=== PATIENT | female | born 1970 | race Caucasian/White ===

== ENCOUNTER → 2018-05-25 12:21 | Outpatient (CLI) | payer OTHER, SELFPAY ==
--- NOTE | 2018-05-25 | DI.MG.S_ITS ---
BILATERAL DIGITAL SCREENING MAMMOGRAM 3D/2D WITH CAD: 05/25/2018 CLINICAL: Routine screening. Comparison is made to exams dated: 05/06/2017 mammogram, 04/10/2016 mammogram, and 08/25/2010 mammogram - [facility]. The tissue of both breasts is extremely dense, which lowers the sensitivity of mammography. Current study was also evaluated with a Computer Aided Detection (CAD) system. No significant masses, calcifications, or other findings are seen in either breast. There has been no significant interval change. IMPRESSION: NEGATIVE There is no mammographic evidence of malignancy. A 1 year screening mammogram is recommended. This exam was interpreted at Station ID: [id number]. NOTE: For mammograms, a report in lay terms will be sent to the patient. Approximately 15% of breast malignancies will not be visualized mammographically. In the management of a palpable breast mass, a negative mammogram must not discourage biopsy of a clinically suspicious lesion. Electronically Signed By: Yuval stevenson/nikolay:05/25/2018 21:51:15 letter sent: Normal Exam ACR BI-RADS Category 1: Negative [id number]
== END ==
PROVIDERS: Visit Provider Family Medicine
DX: Z12.31 Encounter for screening mammogram for malignant neoplasm of breast (principal)
CPT/HCPCS: 77063; 77067

== ENCOUNTER 2022-12-01 04:15 | Emergency (ER) | payer OTHER, SELFPAY ==
[2022-12-01 04:22] VITALS: BP 140/60; PULSE 72; RESP 18; TEMP 36.4; O2SAT 100; BMI 21.6
--- NOTE | 2022-12-01 04:35 | ED_ITS ---
HPI - Extremity Problem General Chief complaint: Extremity Problem,Nontraumatic Stated complaint: left tricep hurts Time Seen by Provider: 12/01/22 04:29 Source: patient Mode of arrival: Ambulatory History of Present Illness HPI Narrative: Patient is a 52-year-old male here for evaluation of discomfort to her left triceps muscle. She states it started hurting just a couple days ago. There was no specific injury. She states that it hurts whenever she strains her arm out or moves her arm away from her body. She has no neck pain. She is been doing ice and Tylenol and ibuprofen at home. She comes in the emergency department at 0430 in the morning because she states that she thought that it would not be busy and that maybe she could ?fast track? an MRI. Related Data Previous Rx's Medication Instructions Recorded albuterol sulfate 90 mcg/actuation 2 puff INH Q4HP PRN #1 ea 05/06/17 aerosol inhaler (Ventolin HFA) bupropion HCl 300 mg 24 hr tablet, 1 tab PO Q DAY #90 tabs 09/28/17 extended release buspirone 15 mg tablet 1 tab PO BID #180 tabs 09/28/17 levonorgestrel-ethinyl estradiol 1 tab PO QDAY ##3 11/08/17 0.1 mg-20 mcg tablet (Lutera (28)) Allergies Allergy/AdvReac Type Severity Reaction Status Date / Time codeine Allergy Unknown AGGRESSIVE Unverified 01/05/18 12:13 buspirone [BUSPIRONE] AdvReac Mild headache Unverified 01/05/18 12:13 Review of Systems Constitutional Constitutional: Reports system reviewed and no additional complaints, except as documented Musculoskeletal Musculoskeletal: Reports system reviewed and no additional complaints, except as documented Integumentary/Breasts Skin/Breast: Reports system reviewed and no additional complaints, except as documented Neurologic Neurologic: Reports system reviewed and no additional complaints, except as documented Patient History Surgical History (Updated 01/25/18 @ 05:51 by TRIPP Allison) Status post delivery Status post cholecystectomy Status post colonoscopy (06/21/13) Social History Smoking Status: Never smoker Smoking Status: Never smoker alcohol intake frequency: a few times a month Substance Use Type: does not use Exam Initial Vital Signs Initial Vital Signs: Vital Signs Temperature 97.6 F 12/01/22 04:22 Pulse Rate 72 12/01/22 04:22 Respiratory Rate 18 12/01/22 04:22 Blood Pressure 140/60 12/01/22 04:22 Pulse Oximetry 100 12/01/22 04:22 Oxygen Delivery Method Room Air 12/01/22 04:22 Const General: cooperative HENMT Head: normal to inspection and normocephalic Back/Spine/Pelvis Cervical Spine: No cervical spasm and No cervical spinal tenderness Skin General: no rashes or lesions noted Neuro General: patient alert, patient awake and moves all extremities Extrem Other: Discomfort in the medial aspect of the left triceps muscle. No elbow pain. Course Vital Signs Vital signs: Vital Signs - 8 hr 12/01/22 04:22 Temperature 97.6 F Pulse Rate 72 Respiratory Rate 18 Blood Pressure 140/60 Pulse Oximetry 100 Oxygen Delivery Method Room Air MDM - Extremity (Nontraumatic) MDM Narrative Medical decision making narrative: Patient has had symptoms for only a couple days. There is no indication for radiologic studies. Low suspicion for ACS as her discomfort is clearly reproducible with palpation and movement. The does not appear that there is a muscle spasm. I have low suspicion for a muscle tear. The skin has no changes and low suspicion for cellulitis. Also have low suspicion for cervical radiculopathy. Informed patient that she needs to follow-up with her primary doctor, physical therapist and continue with heat and ice and massage and anti- inflammatories. We discussed using the sling sparingly has a can cause shoulder issues. No indication for MRI out of the emergency department. Discharge Plan Departure Patient Disposition: Home Clinical Impression: Strain of left triceps Instructions: How To Perform RICE (Rest, Ice, Compress, Elevate) Activity Restrictions/Additional Instructions: I do recommend that you use the sling sparingly for your comfort. You can continue with icing and anti-inflammatories. I would also recommend that you talk with your physical therapist. Contact your primary doctor for a follow-up. Prescriptions: No Action albuterol sulfate [Ventolin HFA] 90 MCG/PUFF HFA aerosol inhaler 2 puff INH Q4HP PRNQty: 1 4RF buspirone 15 MG tablet 1 tab PO BID Qty: 180 1RF bupropion HCl 300 MG tablet extended release 24 hr 1 tab PO Q DAY Qty: 90 1RF levonorgestrel-ethinyl estrad [Lutera (28)] 1 EACH tablet 1 tab PO QDAY Qty: 3 3RF Referrals: Mao Hicks MD [Primary Care Provider] - Stand Alone Forms: Patient Portal/API
[2022-12-01 04:42] VITALS: PULSE 78; RESP 20; O2SAT 100
== END 2022-12-01 04:43 | disposition home or self-care (01) ==
PROVIDERS: Emergency Provider Emergency Medicine; PCP Family Medicine
DX: S46.312A Strain of muscle, fascia and tendon of triceps, left arm, initial encounter (principal)
CPT/HCPCS: 99281

== ENCOUNTER 2023-05-27 07:39 | Emergency (ER) | payer OTHER, SELFPAY ==
[2023-05-27 07:44] VITALS: BP 140/65; PULSE 76; RESP 18; TEMP 36.8; O2SAT 100; BMI 20.9
--- NOTE | 2023-05-27 08:02 | DI.CT.S_ITS ---
PROCEDURE: CT ABDOMEN PELVIS W CON INDICATIONS: abdominal pain TECHNIQUE: After the administration of oral and IV contrast, axial sections were acquired from the lung bases to the pubic symphysis. Coronal and sagittal reformats were performed. For radiation dose reduction, the following was used: automated exposure control, adjustment of mA and/or kV according to patient size. COMPARISON: [facility], CT, CT ABDOMEN PELVIS WITH CONTRAST, 06/29/2018, 15:31 mass lesion . [facility], CT, ABDOMEN/PELVIS WITH CONTRAST, 04/29/2013, 8:34. FINDINGS: Image quality: Excellent. Lung bases: Unremarkable. Heart: No significant findings. ABDOMEN: Liver: Liver is enlarged measuring 18.7 cm with steatosis. Gallbladder: Removed. Biliary ducts: Unremarkable. Pancreas: Unremarkable. Spleen: Unremarkable. Adrenal Glands: Unremarkable. Kidneys and Ureters: Unremarkable. Stomach and Bowel: Stomach, small bowel loops, and colon are nonobstructive. There is thickening of the distal descending extending to the sigmoid colon with inflammatory change. The proximal most portion demonstrates a masslike appearance of wall thickening. Diverticula are present. Appendix is normal. Peritoneum: Mild dependent pelvic fluid. No free air. Ventral Wall: No hernia. Abdominal Nodes: No retroperitoneal or mesenteric adenopathy by size criteria. Vessels: Aorta and inferior vena cava are normal in size. PELVIS: Pelvic Organs: Unremarkable. Bladder: Unremarkable. Pelvic Nodes: No enlarged lymph nodes. Miscellaneous: No inguinal hernias are seen. Bones: Unremarkable. IMPRESSION: Descending and sigmoid colonic thickening and inflammatory change with diverticula most suggestive of colitis secondary diverticulitis. As noted above, the more proximal aspect of the inflammatory change has an almost masslike thickened appearance. Recommend short interval imaging follow-up to document resolution exclude presence of underlying mass or colonoscopy as indicated. Dictated by: Blanca Hare M.D. on 05/27/2023 at 9:26 Approved by: Blanca Hare M.D. on 05/27/2023 at 9:30
[2023-05-27 08:08] LABS: Add Manual Diff / Slide Review NO; Basophils Absolute Auto 0 /uL (0-100); Basophils Percent Auto 0.2 % (0-2); Eosinophils Absolute Auto 600 /uL (0-450); Eosinophils Percent Auto 5.1 % (2-4); Hematocrit 37.6 % (36-46); Hemoglobin 12.8 g/dL (12.0-16.0); Lymphocytes Absolute Auto 1600 /uL (1100-4500); Lymphocytes Percent Auto 14.3 % (25-40); Mean Corpuscular Hemoglobin 31.1 PG (26-34); Mean Corpuscular Volume 91.6 fL (80-100); Monocytes Absolute Auto 700 /uL (0-900); Monocytes Percent Auto 6.6 % (3-14); Neutrophils Absolute Auto 8100 /uL (1500-7000); Neutrophils Percent Auto 73.8 % (50-75); Platelet Count 303 X10^3/uL (150-400); Red Blood Cell Count 4.11 X10^6/uL (4.0-5.2); Red Cell Distribution Width 12.8 % (11.6-14.8)
--- NOTE | 2023-05-27 08:13 | ED_ITS ---
HPI - Abdominal Pain General Chief Complaint: Abdominal Pain Stated Complaint: sent by [facility] abd pain Time Seen by Provider: 05/27/23 08:03 Source: patient Mode of arrival: Ambulatory History of Present Illness HPI narrative: Patient brought self here for complaints of bilateral lower abdominal pain burning pain for the past 1 week. Does radiate to the back. No urinary complaints. No fever chills. No nausea vomiting diarrhea no black or bloody stools. History of diverticulitis and patient states it feels similar. History of colonoscopy but more than 5 years ago. No recent antibiotic use. Patient did take Advil prior to arrival. Does not want narcotics. She does agree with Toradol. Patient in no distress. Related Data Previous Rx's Medication Instructions Recorded albuterol sulfate 90 mcg/actuation 2 puff INH Q4HP PRN #1 ea 05/06/17 aerosol inhaler (Ventolin HFA) bupropion HCl 300 mg 24 hr tablet, 1 tab PO Q DAY #90 tabs 09/28/17 extended release buspirone 15 mg tablet 1 tab PO BID #180 tabs 09/28/17 levonorgestrel-ethinyl estradiol 1 tab PO QDAY ##3 11/08/17 0.1 mg-20 mcg tablet (Lutera (28)) ciprofloxacin HCl 500 mg tablet 500 mg PO Q12H #14 tabs 05/27/23 (Cipro) metronidazole 500 mg tablet 500 mg PO TID #21 tabs 05/27/23 Allergies Allergy/AdvReac Type Severity Reaction Status Date / Time codeine Allergy Unknown AGGRESSIVE Verified 05/27/23 07:48 Review of Systems Review of Systems Narrative: GENERAL: negative chills, fatigue, malaise, fever, sweats. HEENT: negative sinus pain, ear pain, sore throat RESPIRATORY: negative dyspnea, cough CARDIOVASCULAR: negative chest pain, palpitations GASTROINTESTINAL: negative nausea, vomiting, positive abdominal pain : negative dysuria, frequency, hematuria MUSCULOSKELETAL: negative muscle or bony pain SKIN: negative rash, skin lesions NEUROLOGIC: negative weakness, numbness ROS Unobtainable: All systems reviewed & are unremarkable except as noted in HPI and below Patient History Surgical History Status post delivery Status post cholecystectomy Status post colonoscopy (06/21/13) Social History Smoking Status: Never smoker Smoking Status: Never smoker alcohol intake frequency: a few times a month Substance Use Type: does not use Exam Narrative Exam Narrative: GENERAL: in no distress, not toxic not dyspneic HEAD: Normocephalic. EYES: Pupils equal round ENT: Mucous membranes moist. NECK: Trachea midline. CARDIOVASCULAR: Regular rate and rhythm RESPIRATORY: Clear to auscultation. Breath sounds equal bilaterally. No wheezes, rales, or rhonchi. GASTROINTESTINAL: Abdomen soft, mild diffuse bilateral lower abdominal tenderness. No peritoneal signs. No pain out of proportion to exam. Bowel sounds present. No CVA tenderness. EXTREMITIES: No gross deformities. BACK: No flank tenderness. NEURO: AOx4. SKIN: Warm and dry PSYCH: Not anxious, is cooperative Initial Vital Signs Initial Vital Signs: Vital Signs Temperature 98.3 F 05/27/23 07:44 Pulse Rate 76 05/27/23 07:44 Respiratory Rate 18 05/27/23 07:44 Blood Pressure 140/65 05/27/23 07:44 Pulse Oximetry 100 05/27/23 07:44 Oxygen Delivery Method Room Air 05/27/23 07:44 Course Orders Ordered: Discontinued Medications Ciprofloxacin (Ciprofloxacin 250 Mg Tablet) 500 mg PO NOW ONE Stop: 05/27/23 09:58 Last Admin: 05/27/23 10:29 Dose: 500 mg Documented By: NR Sodium Chloride (Normal Saline 0.9%) 1,000 mls @ 1,000 mls/hr IV BOLUS ONE Stop: 05/27/23 09:07 Last Infusion: 05/27/23 10:06 Dose: 0 mls/hr Documented By: Admin: 05/27/23 08:35 Dose: 1,000 mls/hr Documented By: NR Ketorolac Tromethamine (Ketorolac 30 Mg/Ml Vial) 15 mg IV NOW ONE Stop: 05/27/23 08:09 Last Admin: 05/27/23 08:33 Dose: 15 mg Documented By: NR Metronidazole (Metronidazole 500 Mg Tablet) 500 mg PO NOW ONE Stop: 05/27/23 09:59 Last Admin: 05/27/23 10:29 Dose: 500 mg Documented By: NR Ondansetron HCl (Ondansetron 4 Mg Odt) 4 mg PO NOW PRN PRN Reason: Nausea And Vomiting Ondansetron HCl (Ondansetron 4 Mg/2 Ml Inj) 4 mg IV NOW PRN PRN Reason: Nausea And Vomiting Vital Signs Vital signs: Vital Signs - 8 hr 05/27/23 07:44 Temperature 98.3 F Pulse Rate 76 Respiratory Rate 18 Blood Pressure 140/65 Pulse Oximetry 100 Oxygen Delivery Method Room Air MDM - Abdominal Pain Lab Data 05/27/23 07:54 05/27/23 07:54 Labs: Lab Results 05/27/23 05/27/23 Range/Units 07:54 07:54 WBC 11.0 (4.5-11.0) X10^3/uL RBC 4.11 (4.0-5.2) X10^6/uL Hgb 12.8 (12.0-16.0) g/dL Hct 37.6 (36-46) % MCV 91.6 (80-100) fL MCH 31.1 (26-34) PG MCHC 34.0 (30-36) % RDW 12.8 (11.6-14.8) % Plt Count 303 (150-400) X10^3/uL Neut % (Auto) 73.8 (50-75) % Lymph % (Auto) 14.3 L (25-40) % [place] % (Auto) 6.6 (3-14) % Eos % (Auto) 5.1 H (2-4) % Baso % (Auto) 0.2 (0-2) % Neut # (Auto) 8100 H (0200-8373) /uL Lymph # (Auto) 1600 (4216-6464) /uL [place] # (Auto) 700 (0-900) /uL Eos # (Auto) 600 H (0-450) /uL Baso # (Auto) 0 (0-100) /uL Sodium 139 (137-145) mmol/L Potassium 4.1 (3.4-5.1) mmol/L Chloride 104 (98-107) mmol/L Carbon Dioxide 29 (22-32) mmol/L BUN 14 (7-17) mg/dL Creatinine 0.71 (0.52-1.04) mg/dL Estimated GFR > 60 (>60) mL/min BUN/Creatinine Ratio 19.7 (6-22) Glucose 95 (70-100) mg/dL Calcium 8.9 (8.4-10.2) mg/dL Total Bilirubin 0.7 (0.2-1.3) mg/dL AST 27 (14-36) IU/L ALT 23 (<35) IU/L Alkaline Phosphatase 88 (38-126) U/L Total Protein 7.8 (6.3-8.2) g/dL Albumin 4.4 (3.5-5.0) g/dL Globulin 3.4 (1.7-4.1) g/dL Albumin/Globulin Ratio 1.3 (1.0-2.8) Lipase 70 (23-300) U/L Imaging Data CT scan - abdomen/pelvis: Radiologist's Impression: [address] [address] [address] Scan Report Signed Patient: Eloise Argueta MR#: [id number] : 1970 Acct:[id number] Age/Sex: 53 / F Date of Service: 05/27/23 Loc: ED Accession Number: [id number] ?? Procedure: CT abdomen pelvis w con Ordering Provider: Carl Oneal MD PROCEDURE:? CT ABDOMEN PELVIS W CON ? INDICATIONS:? abdominal pain ? TECHNIQUE:? After the administration of oral and IV contrast, axial sections were acquired from the lung bases to the pubic symphysis.? Coronal and sagittal reformats were performed.? For radiation dose reduction, the following was used:? automated exposure control, adjustment of mA and/or kV according to patient size. ? COMPARISON:? [facility], CT, CT ABDOMEN PELVIS WITH CONTRAST, 06/29/2018, 15:31 mass lesion .? [facility], CT, ABDOMEN/PELVIS WITH CONTRAST, 04/29/2013, 8:34. ? FINDINGS:? Image quality:? Excellent.? ? Lung bases:? Unremarkable.? ? Heart:? No significant findings. ? ? ABDOMEN: Liver:? Liver is enlarged measuring 18.7 cm with steatosis. Gallbladder:? Removed.? ? Biliary ducts:? Unremarkable.? ? Pancreas:? Unremarkable.? ? Spleen:? Unremarkable.? ? Adrenal Glands:? Unremarkable.? ? Kidneys and Ureters:? Unremarkable.? ? ? Stomach and Bowel:? Stomach, small bowel loops, and colon are nonobstructive.? There is thickening of the distal descending extending to the sigmoid colon with inflammatory change.? The proximal most portion demonstrates a masslike appearance of wall thickening. ?Diverticula are present.? Appendix is normal. Peritoneum:? Mild dependent pelvic fluid.? No free air.? ? Ventral Wall: ? No hernia.? Abdominal Nodes:? No retroperitoneal or mesenteric adenopathy by size criteria.? Vessels:? Aorta and inferior vena cava are normal in size.? ? PELVIS: Pelvic Organs:? Unremarkable.? ? Bladder:? Unremarkable.? ? Pelvic Nodes: No enlarged lymph nodes.? Miscellaneous: No inguinal hernias are seen. ? ? ? Bones:? Unremarkable.? IMPRESSION:? ? Descending and sigmoid colonic thickening and inflammatory change with diverticula most suggestive of colitis secondary diverticulitis.? As noted above, the more proximal aspect of the inflammatory change has an almost masslike thickened appearance.? Recommend short interval imaging follow-up to document resolution exclude presence of underlying mass or colonoscopy as indicated.? ? Dictated by: Blanca Hare M.D. on 05/27/2023 at 9:26 ? ? Approved by: Blanca Hare M.D. on 05/27/2023 at 9:30 ? MDM Narrative Medical decision making narrative: Patient brought self here for complaints of bilateral lower abdominal pain burning pain for the past 1 week. Does radiate to the back. No urinary complaints. No fever chills. No nausea vomiting diarrhea no black or bloody stools. History of diverticulitis and patient states it feels similar. History of colonoscopy but more than 5 years ago. No recent antibiotic use. Patient did take Advil prior to arrival. Does not want narcotics. She does agree with Toradol. Patient in no distress. After history and exam CBC CMP urinalysis CT abdomen pelvis Toradol Zofran normal saline MDM CC: Lower abdominal pain Complicating co-morbidities: History of diverticulitis Data collected from: Patient Medical records reviewed: No recent visit for this complaint Differential considered: Includes but not limited to diverticulosis diverticulitis bowel obstruction bowel perforation colitis UTI pyelonephritis appendicitis Exam documented above, pertinent findings include: Tender lower abdomen Lab Test results independently reviewed as above. Pertinent findings: WBC 11.0 hemoglobin 12.8 sodium 139 potassium 4.1 BUN 14 creatinine 0.71 AST 27 ALT 23 EKG normal sinus rhythm rate 69 normal EKG Imaging studies independently reviewed: CT abdomen pelvis acute diverticulitis Consultations: None required Treatments: Toradol normal saline, Cipro/Flagyl Re-evaluations: Patient states pain is better. Reviewed results with patient. Agrees with treatment plan. Desires discharge home. She states she does have a surgeon to follow up for outpatient colonoscopy. Not toxic at discharge. Discussion: Appropriate for discharge home. Exam is reassuring as well as laboratory studies and imaging. Patient has had outpatient treatment for diverticulitis in the past before. She does have established general surgeon for outpatient colonoscopy. Antibiotics started here in the department. Not toxic at discharge. Return precautions reviewed with her. She desires discharge home Diagnosis: Acute diverticulitis Discharge Plan Departure Patient Disposition: Home Clinical Impression: Diverticulitis Instructions: DI for Diverticulitis Activity Restrictions/Additional Instructions: Prescription antibiotics have been sent to your pharmacy to machine operator [facility] pick[facility] today. Be sure to complete full course of these antibiotics. Please do call your general surgeon this week to schedule outpatient colonoscopy after treatment of your diverticulitis. Return if worse if any questions or concerns. Keep well hydrated. Prescriptions: New ciprofloxacin HCl [Cipro] 500 mg tablet 500 mg PO Q12H Qty: 14 0RF metronidazole 500 mg tablet 500 mg PO TID Qty: 21 0RF No Action albuterol sulfate [Ventolin HFA] 90 MCG/PUFF HFA aerosol inhaler 2 puff INH Q4HP PRNQty: 1 4RF buspirone 15 MG tablet 1 tab PO BID Qty: 180 1RF bupropion HCl 300 MG tablet extended release 24 hr 1 tab PO Q DAY Qty: 90 1RF levonorgestrel-ethinyl estrad [Lutera (28)] 1 EACH tablet 1 tab PO QDAY Qty: 3 3RF Referrals: Mao Hicks MD [Primary Care Provider] - Stand Alone Forms: Patient Portal/API
[2023-05-27 08:15] LABS: Alanine Aminotransferase 23 IU/L (<35); Albumin 4.4 g/dL (3.5-5.0); Albumin Globulin Ratio 1.3 (1.0-2.8); Alkaline Phosphatase 88 U/L (38-126); Aspartate Aminotransferase 27 IU/L (14-36); BUN Creatinine Ratio 19.7 (6-22); Bilirubin Total 0.7 mg/dL (0.2-1.3); Blood Urea Nitrogen 14 mg/dL (7-17); Calcium 8.9 mg/dL (8.4-10.2); Carbon Dioxide 29 mmol/L (22-32); Chloride 104 mmol/L (98-107); Estimated Glomerular Filt Rate > 60 mL/min (>60); Globulin 3.4 g/dL (1.7-4.1); Glucose 95 mg/dL (70-100); HEMOLYSIS < 15 (0-50); Lipase 70 U/L (23-300); Potassium 4.1 mmol/L (3.4-5.1); Sodium 139 mmol/L (137-145); Total Protein 7.8 g/dL (6.3-8.2)
[2023-05-27 08:33] VITALS: BP 125/76; PULSE 74; O2SAT 100
[2023-05-27] MEDS: KETOROLAC 30 MG/ML VIAL 15 MG IV (08:33)
[2023-05-27] MEDS: SODIUM CHLORIDE 0.9% 1,000 ML 1000 ML IV (08:35)
[2023-05-27 09:00] VITALS: BP 115/67; PULSE 69; O2SAT 100
[2023-05-27 09:30] VITALS: BP 111/63; PULSE 69; O2SAT 99
[2023-05-27 10:00] VITALS: BP 116/76; PULSE 81; O2SAT 100
[2023-05-27] MEDS: metroNIDAZOLE 500 MG TABLET PO (10:29)
[2023-05-27] MEDS: CIPROFLOXACIN 250 MG TABLET 500 MG PO (10:29)
== END 2023-05-27 10:35 | disposition home or self-care (01) ==
PROVIDERS: Emergency Provider Emergency Medicine; PCP Family Medicine
DX: K57.92 Diverticulitis of intestine, part unspecified, without perforation or abscess without bleeding (principal)
CPT/HCPCS: 36415; 74177; 80053; 83690; 85025; 93005; 96361; 96374; 99284; J1885; Q9967

== ENCOUNTER 2024-06-02 18:59 | Emergency (ER) | payer OTHER, SELFPAY ==
[2024-06-02] VITALS (10 sets, daily range): BP systolic 105–135; BP diastolic 62–81; PULSE 89–107; RESP 14–24; TEMP 39.1; O2SAT 95–100; BMI 20.6
--- NOTE | 2024-06-02 19:24 | DI.RAD.S_ITS ---
PROCEDURE: XR CHEST 1V INDICATIONS: suspected sepsis TECHNIQUE: One view of the chest was acquired. COMPARISON: None. FINDINGS: Surgical changes and devices: None. Lungs and pleura: Lungs are clear. No pleural effusions or pneumothorax. Mediastinum: Mediastinal contours appear normal. Heart size is normal. Bones and chest wall: No suspicious bony lesions. Overlying soft tissues appear unremarkable. IMPRESSION: No acute pulmonary process. Dictated by: Blanca Hare M.D. on 06/02/2024 at 19:57 Approved by: Blanca Hare M.D. on 06/02/2024 at 19:57
[2024-06-02] MEDS: SODIUM CHLORIDE 0.9% 1,000 ML 1000 ML IV (19:40)
[2024-06-02] MEDS: ONDANSETRON 4 MG/2 ML INJ IV (19:40)
[2024-06-02 19:42] LABS: Add Manual Diff / Slide Review NO; Basophils Absolute Auto 0 /uL (0-100); Basophils Percent Auto 0.3 % (0-2); Eosinophils Absolute Auto 100 /uL (0-450); Eosinophils Percent Auto 0.3 % (2-4); Hematocrit 35.3 % (36-46); Hemoglobin 11.9 g/dL (12.0-16.0); Lymphocytes Absolute Auto 800 /uL (1100-4500); Lymphocytes Percent Auto 4.6 % (25-40); Mean Corpuscular HGB Conc 33.7 % (30-36); Mean Corpuscular Hemoglobin 31.5 PG (26-34); Mean Corpuscular Volume 93.4 fL (80-100); Monocytes Absolute Auto 1600 /uL (0-900); Monocytes Percent Auto 8.8 % (3-14); Neutrophils Absolute Auto 15600 /uL (1500-7000); Platelet Count 254 X10^3/uL (150-400); Red Blood Cell Count 3.78 X10^6/uL (4.0-5.2); Red Cell Distribution Width 13.2 % (11.6-14.8); White Blood Cell Count 18.1 X10^3/uL (4.5-11.0)
[2024-06-02 19:48] LABS: INR 1.1 (0.9-1.3); Prothrombin Time 12.1 SECONDS (9.4-12.5)
[2024-06-02 19:54] LABS: Potassium 4.3 mmol/L (3.4-5.1)
[2024-06-02 19:55] LABS: Lactate (Lactic Acid) 0.5 mmol/L (0.7-2.1)
[2024-06-02 19:56] LABS: Alanine Aminotransferase 15 IU/L (<35); Albumin 4.2 g/dL (3.5-5.0); Albumin Globulin Ratio 1.2 (1.0-2.8); Alkaline Phosphatase 58 U/L (38-126); Aspartate Aminotransferase 22 IU/L (14-36); Bilirubin Total 0.6 mg/dL (0.2-1.3); Blood Urea Nitrogen 28 mg/dL (7-17); Calcium 9.2 mg/dL (8.4-10.2); Carbon Dioxide 26 mmol/L (22-32); Chloride 100 mmol/L (98-107); Estimated Glomerular Filt Rate > 60 mL/min (>60); Globulin 3.4 g/dL (1.7-4.1); Glucose 128 mg/dL (70-100); Lipase 45 U/L (23-300); Sodium 132 mmol/L (137-145); Total Protein 7.6 g/dL (6.3-8.2)
[2024-06-02 19:57] LABS: HEMOLYSIS 53 (0-50)
[2024-06-02 20:01] LABS: PTT Partial Thromboplastin Tim 32 SECONDS (25.1-36.5)
[2024-06-02 20:13] LABS: Procalcitonin 0.114 ng/mL (<0.5)
[2024-06-02 20:23] LABS: COVID-19 CEPHEID 4-PLEX PCR Negative (Negative); Influenza A - CEPHEID Flu A NEGATIVE (NEGATIVE); Influenza B - CEPHEID Flu B NEGATIVE (NEGATIVE); Respiratory Syncytial Virus Negative (Negative)
--- NOTE | 2024-06-02 20:24 | ED.BACK ---
HPI - Back Pain/Injury General Chief Complaint: Back Pain/Injury Stated Complaint: kidney infection, N/V/ blurry vision Time Seen by Provider: 06/02/24 20:18 Source: patient History of Present Illness HPI Narrative: Patient is a 54-year-old female currently being worked up for endometriosis sounds as though she has had recurrent UTIs possibly on Pyridium presents today with fever and left flank pain. She reports that she took an [id number] bacteria vaginosis versus UTI PH test she reports that was fine however she is having significant flank pain and is febrile with a temperature of 102?. She says that she was okay yesterday but she was having some left flank pain and today she felt nauseous she threw up a couple times in the ED and has a left pain radiating to her stomach. She denies any sort of chest pain cough or sore throat. I do not see that she has been on recent antibiotics but was on Macrobid in March Related Data Previous Rx's Medication Instructions Recorded albuterol sulfate 90 mcg/actuation 2 puff INH Q4HP PRN #1 ea 05/06/17 aerosol inhaler (Ventolin HFA) bupropion HCl 300 mg 24 hr tablet, 1 tab PO Q DAY #90 tabs 09/28/17 extended release buspirone 15 mg tablet 1 tab PO BID #180 tabs 09/28/17 levonorgestrel-ethinyl estradiol 1 tab PO QDAY ##3 11/08/17 0.1 mg-20 mcg tablet (Lutera (28)) ciprofloxacin HCl 500 mg tablet 500 mg PO Q12H #14 tabs 05/27/23 (Cipro) metronidazole 500 mg tablet 500 mg PO TID #21 tabs 05/27/23 cefdinir 300 mg capsule 300 mg PO Q12H #20 caps 06/02/24 Allergies Allergy/AdvReac Type Severity Reaction Status Date / Time codeine Allergy Unknown AGGRESSIVE Verified 05/27/23 07:48 Patient History Surgical History Status post colonoscopy (06/21/13) Status post delivery Status post cholecystectomy Social History Smoking Status: Never smoker Smoking Status: Never smoker alcohol intake frequency: a few times a month Substance Use Type: does not use Exam Initial Vital Signs Initial Vital Signs: Vital Signs Temperature 102.3 F H 06/02/24 19:16 Pulse Rate 107 H 06/02/24 19:16 Respiratory Rate 24 06/02/24 19:16 Blood Pressure 135/81 06/02/24 19:16 Pulse Oximetry 100 06/02/24 19:16 Oxygen Delivery Method Room Air 06/02/24 19:16 GENERAL: 54-year-old female appears to not feel well HEENT: Head atraumatic,EOMI, pupils reactive, face symmetric, [moist] mucous membranes CARDIOVASCULAR: Regular rate and rhythm without murmurs, rubs or gallops. RESPIRATORY: Breath sounds equal bilaterally, no wheezes rales or rhonchi. ABDOMEN: Soft, nontender. Normoactive bowel sounds all 4 quadrants. No guarding or rebound. EXTREMITIES: Normal range of motion, no clubbing or edema. Neurovascularly intact NEUROLOGICAL: Alert and oriented x4.Normal gait and speech. Cranial nerves II through XII grossly intact. SKIN: Warm, dry, no laceration, no petechiae, no rashes or lesions. Course Orders Ordered: ED Orders 06/02/24 20:24 Urine Culture Stat Urine Microscopic Stat 06/02/24 20:31 CT abdomen pelvis w con Stat Discontinued Medications Sodium Chloride (Normal Saline 0.9%) 1,000 mls @ 1,000 mls/hr IV BOLUS ONE Stop: 06/02/24 20:23 Last Infusion: 06/02/24 21:47 Dose: Infused Documented By: Admin: 06/02/24 19:40 Dose: 1,000 mls/hr Documented By: EVELYN Sodium Chloride (Normal Saline 0.9%) 1,741.8 mls @ 580.6 mls/hr 30 ml/kg infuse over 3 hr (1741.8 ml) IV NOW ONE Stop: 06/02/24 23:18 Last Infusion: 06/02/24 23:04 Dose: 0 mls/hr Documented By: Admin: 06/02/24 21:24 Dose: 580.6 mls/hr Documented By: MANPREET Acetaminophen (Ofirmev) 1,000 mg in 100 mls @ 400 mls/hr IV NOW ONE Stop: 06/02/24 20:45 Last Infusion: 06/02/24 21:25 Dose: Infused Documented By: Admin: 06/02/24 20:39 Dose: 400 mls/hr Documented By: Ceftriaxone Sodium 1,000 mg/ (Sodium Chloride) 100 mls @ 200 mls/hr IV NOW ONE Stop: 06/02/24 20:32 Last Infusion: 06/02/24 21:25 Dose: Infused Documented By: Admin: 06/02/24 20:39 Dose: 200 mls/hr Documented By: Ketorolac Tromethamine (Ketorolac 30 Mg/Ml Vial) 15 mg IV NOW ONE Stop: 06/02/24 20:20 Last Admin: 06/02/24 20:30 Dose: 15 mg Documented By: Ondansetron HCl (Ondansetron 4 Mg/2 Ml Inj) 4 mg IV NOW PRN PRN Reason: Nausea And Vomiting Last Admin: 06/02/24 19:40 Dose: 4 mg Documented By: Ondansetron HCl (Ondansetron 4 Mg Odt) 4 mg SL NOW PRN PRN Reason: Nausea And Vomiting Vital Signs Vital signs: Vital Signs - 8 hr 06/02/24 21:30 06/02/24 21:30 06/02/24 22:00 Pulse Rate 94 H 95 H Respiratory Rate 22 21 Blood Pressure 115/67 Pulse Oximetry 95 96 Oxygen Delivery Method 06/02/24 22:00 06/02/24 23:05 Pulse Rate 89 Respiratory Rate 14 Blood Pressure 115/73 105/65 Pulse Oximetry 97 Oxygen Delivery Method Room Air MDM - Back Pain/Injury Lab Data 06/02/24 19:30 06/02/24 19:30 Labs: Lab Results 06/02/24 06/02/24 Range/Units 19:30 20:24 WBC 18.1 H (4.5-11.0) X10^3/uL RBC 3.78 L (4.0-5.2) X10^6/uL Hgb 11.9 L (12.0-16.0) g/dL Hct 35.3 L (36-46) % MCV 93.4 (80-100) fL MCH 31.5 (26-34) PG MCHC 33.7 (30-36) % RDW 13.2 (11.6-14.8) % Plt Count 254 (150-400) X10^3/uL Neut % (Auto) 86.0 H (50-75) % Lymph % (Auto) 4.6 L (25-40) % Payne % (Auto) 8.8 (3-14) % Eos % (Auto) 0.3 L (2-4) % Baso % (Auto) 0.3 (0-2) % Neut # (Auto) 45390 H (1928-6821) /uL Lymph # (Auto) 800 L (3518-2001) /uL Payne # (Auto) 1600 H (0-900) /uL Eos # (Auto) 100 (0-450) /uL Baso # (Auto) 0 (0-100) /uL PT 12.1 (9.4-12.5) SECONDS INR 1.1 (0.9-1.3) APTT 32 (25.1-36.5) SECONDS Sodium 132 L (137-145) mmol/L Potassium 4.3 (3.4-5.1) mmol/L Chloride 100 (98-107) mmol/L Carbon Dioxide 26 (22-32) mmol/L BUN 28 H (7-17) mg/dL Creatinine 0.70 (0.52-1.04) mg/dL Estimated GFR > 60 (>60) mL/min BUN/Creatinine Ratio 40.0 H (6-22) Glucose 128 H (70-100) mg/dL Lactate 0.5 L (0.7-2.1) mmol/L Calcium 9.2 (8.4-10.2) mg/dL Total Bilirubin 0.6 (0.2-1.3) mg/dL AST 22 (14-36) IU/L ALT 15 (<35) IU/L Alkaline Phosphatase 58 (38-126) U/L Total Protein 7.6 (6.3-8.2) g/dL Albumin 4.2 (3.5-5.0) g/dL Globulin 3.4 (1.7-4.1) g/dL Albumin/Globulin Ratio 1.2 (1.0-2.8) Lipase 45 (23-300) U/L Procalcitonin 0.114 (<0.5) ng/mL Urine RBC 1-5/hpf (0-5/HPF) Urine WBC 5-10/hpf H (0-5/HPF) Ur Squamous Epith Cells 5-10 /hpf H (0-5/HPF) Urine Bacteria Many (>30) H (None) Ur Culture Indicated? Specimen cultured Vol Urine Centrifuged 10ml (spun) SARS-CoV-2 (PCR) Negative (Negative) Influenza A (RT-PCR) Flu a negative (NEGATIVE) Influenza B (RT-PCR) Flu b negative (NEGATIVE) RSV (PCR) Negative (Negative) Urine Dip Bedside Urine Glucose Negative Bedside Urine Bilirubin - Negative Bedside Urine Ketone - Negative Urine Specific Dinosaur 1.015 Bedside Urine Occult Blood +++ Bedside Urine pH 6.0 Bedside Urine Protein +/- 15 Bedside Urine Urobilinogen - Negative Bedside Urine Nitrite + Positive Bedside Urine Leukocytes +/- [address] scan - abdomen/pelvis: Radiologist's Impression: PROCEDURE: CT ABDOMEN PELVIS W CON INDICATIONS: left flank pain fever TECHNIQUE: After the administration of intravenous contrast, axial sections acquired from the lung bases to the pubic symphysis. Coronal and sagittal reformats were performed. For radiation dose reduction, the following was used: automated exposure control, adjustment of mA and/or kV according to patient size. COMPARISON: [facility], CT, CT ABDOMEN PELVIS W CON, 05/27/2023, 8:31. FINDINGS: Image quality: Diagnostic. Lower Chest: No significant findings. ABDOMEN: Liver: No solid mass. Moderate periportal edema, nonspecific. Gallbladder: Surgically absent. Biliary ducts: No biliary dilation. Pancreas: Normal size and morphology without visible ductal dilatation or inflammation. Spleen: Size is within normal limits. Adrenal Glands: No adrenal nodules. Kidneys and Ureters: Symmetric enhancement. There are patchy, ill-defined indistinct areas of hypodensity in the upper and lower pole of left kidney. No cyst or solid mass. Punctate nonobstructing left lower pole intrarenal calcification. No hydroureter. Mild left urothelial thickening and enhancement and periureteric inflammation. Stomach and Bowel: Stomach and small bowel loops are normal caliber. Diverticulosis occasionally throughout most of the colon. Increased quantity of solid colonic stool. Normal appendix. Peritoneum: No abnormal intraperitoneal fluid. No free air. Ventral Wall: Surgical changes. No ventral hernia. Abdominal Nodes: No retroperitoneal or mesenteric adenopathy by size criteria. Vessels: The abdominal aorta, IVC, and portal vein are of normal caliber. PELVIS: Pelvic Organs: Uterus and ovaries are normal. Bladder: Mild diffuse circumferential wall thickening in the urinary bladder. No stones. Pelvic Nodes: No enlarged lymph nodes. Miscellaneous: No inguinal hernias are seen. Bones: No aggressive osseous abnormality. IMPRESSION: Heterogeneous left renal parenchymal enhancement suggesting pyelonephritis. Wall thickening of the urinary bladder and left ureter suggests ascending infection. No stones to suggest obstructive uropathy. Mild colonic obstipation and occasional diffuse colonic diverticulosis. Moderate periportal edema is nonspecific and most likely reactive. Dictated by: Sue Mcclain M.D. on 06/02/2024 at 21:20 [facility] Narrative Medical decision making narrative: MDM CC: Fever left flank pain Complicating co-morbidities: None Medical records reviewed: ED visit from last year however medications and pharmacy list has been reviewed Differential considered: Septic nephrolithiasis, pyelonephritis, UTI diverticulitis Exam documented above, pertinent findings include: Patient appears to not feel well she does have tenderness in her left CVA abdomen soft nonacute no peritoneal signs Lab Test results independently reviewed as above. Pertinent findings: CBC does show leukocytosis of 18.1 without anemia CMP no LEONEL mild hyponatremia, sodium 132 potassium 4 point chloride 100 carbon dioxide 26 BUN 28 creatinine 0.7, lipase 45 Lactate 0.5, procalcitonin 0.114 Imaging studies independently reviewed: CT does show pyelonephritis with an ascending infection but no nephrolithiasis Consultations: none Treatments: Sepsis fluids, Toradol, Tylenol and Rocephin Re-evaluations: Patient overall is feeling much better, mild tachycardia has improved blood pressure remains stable Discussion: Patient 54-year-old female presenting today with fever and flank pain. She says that she is being worked up for endometriosis she has had some issues but she really developed a left flank pain and fever today. She is found to have leukocytosis of 18 urinalysis is positive for UTI and CT confirms pyelonephritis. No obvious septic shock vitals are stable and actually her lactate is less than 1. She has improved significantly with fluids and medication. At this time I think reasonable to treat her as an outpatient with cefdinir. Blood cultures are pending. Discharge Plan Departure Patient Disposition: Home Clinical Impression: Pyelonephritis Instructions: Kidney Infection Activity Restrictions/Additional Instructions: *You have been diagnosed with kidney infection *What to do: Increase fluid intake. You should start to feel better with antibiotics in about 2-3 days. May take Tylenol Motrin as needed for pain and fever *Continue to take medications as directed Cefdinir 300 mg twice a day for 10 days *Follow up with your primary care provider in 2-3 days or call [phone] *Return to ER if you should have increasing pain vomiting confusion or any new, worsening or concerning symptoms Prescriptions: New cefdinir 300 mg capsule 300 mg PO Q12H Qty: 20 0RF No Action albuterol sulfate [Ventolin HFA] 90 MCG/PUFF HFA aerosol inhaler 2 puff INH Q4HP PRNQty: 1 4RF buspirone 15 MG tablet 1 tab PO BID Qty: 180 1RF bupropion HCl 300 MG tablet extended release 24 hr 1 tab PO Q DAY Qty: 90 1RF levonorgestrel-ethinyl estrad [Lutera (28)] 1 EACH tablet 1 tab PO QDAY Qty: 3 3RF ciprofloxacin HCl [Cipro] 500 mg tablet 500 mg PO Q12H Qty: 14 0RF metronidazole 500 mg tablet 500 mg PO TID Qty: 21 0RF Referrals: Mao Hicks MD [Primary Care Provider] - Stand Alone Forms: Patient Portal/API
[2024-06-02] MEDS: KETOROLAC 30 MG/ML VIAL 15 MG IV (20:30)
--- NOTE | 2024-06-02 20:31 | DI.CT.S_ITS ---
PROCEDURE: CT ABDOMEN PELVIS W CON INDICATIONS: left flank pain fever TECHNIQUE: After the administration of intravenous contrast, axial sections acquired from the lung bases to the pubic symphysis. Coronal and sagittal reformats were performed. For radiation dose reduction, the following was used: automated exposure control, adjustment of mA and/or kV according to patient size. COMPARISON: [facility], CT, CT ABDOMEN PELVIS W CON, 05/27/2023, 8:31. FINDINGS: Image quality: Diagnostic. Lower Chest: No significant findings. ABDOMEN: Liver: No solid mass. Moderate periportal edema, nonspecific. Gallbladder: Surgically absent. Biliary ducts: No biliary dilation. Pancreas: Normal size and morphology without visible ductal dilatation or inflammation. Spleen: Size is within normal limits. Adrenal Glands: No adrenal nodules. Kidneys and Ureters: Symmetric enhancement. There are patchy, ill-defined indistinct areas of hypodensity in the upper and lower pole of left kidney. No cyst or solid mass. Punctate nonobstructing left lower pole intrarenal calcification. No hydroureter. Mild left urothelial thickening and enhancement and periureteric inflammation. Stomach and Bowel: Stomach and small bowel loops are normal caliber. Diverticulosis occasionally throughout most of the colon. Increased quantity of solid colonic stool. Normal appendix. Peritoneum: No abnormal intraperitoneal fluid. No free air. Ventral Wall: Surgical changes. No ventral hernia. Abdominal Nodes: No retroperitoneal or mesenteric adenopathy by size criteria. Vessels: The abdominal aorta, IVC, and portal vein are of normal caliber. PELVIS: Pelvic Organs: Uterus and ovaries are normal. Bladder: Mild diffuse circumferential wall thickening in the urinary bladder. No stones. Pelvic Nodes: No enlarged lymph nodes. Miscellaneous: No inguinal hernias are seen. Bones: No aggressive osseous abnormality. IMPRESSION: Heterogeneous left renal parenchymal enhancement suggesting pyelonephritis. Wall thickening of the urinary bladder and left ureter suggests ascending infection. No stones to suggest obstructive uropathy. Mild colonic obstipation and occasional diffuse colonic diverticulosis. Moderate periportal edema is nonspecific and most likely reactive. Dictated by: Sue Mcclain M.D. on 06/02/2024 at 21:20 Approved by: Sue Mcclain M.D. on 06/02/2024 at 21:38
--- NOTE | 2024-06-02 20:38 | PC.NURSE ---
patient states that she has been having intermittent feelings of her heart racing. she denies SOB, chest pain, pressure, dizzyness.
[2024-06-02] MEDS: ACETAMINOPHEN IV 1,000 MG/100 ML VIAL 400 MG IV (20:39)
[2024-06-02] MEDS: cefTRIAXone 1,000 MG in SODIUM CHLORIDE 0.9% 100 ML 200 MG IV (20:39)
[2024-06-02 20:44] LABS: Bacteria Urine Many (>30); Culture Indicated Urine Specimen Cultured; RBC Urine 1-5/HPF (0-5/HPF); Squamous Epithelial Cell Urine 5-10 /HPF (0-5/HPF); Urine Volume 10mL (spun); WBC Urine 5-10/HPF (0-5/HPF)
[2024-06-02] MEDS: SODIUM CHLORIDE 0.9% 580.6 ML IV (21:24)
== END 2024-06-02 23:07 | disposition home or self-care (01) ==
PROVIDERS: Emergency Provider Emergency Medicine; PCP Family Medicine
DX: N12 Tubulo-interstitial nephritis, not specified as acute or chronic (principal); R50.9 Fever, unspecified; R00.0 Tachycardia, unspecified; Z11.52 Encounter for screening for COVID-19
CPT/HCPCS: 0241U; 36415; 71045; 74177; 80053; 81003; 81015; 83605; 83690; 84145; 85025; 85610; 85730; 87040; 87077; 87086; 87186; 96361; 96365; 96368; 96375; 99284; J0136; J0696; J1885; J2405; Q9967

== ENCOUNTER → 2024-10-05 08:44 | Outpatient (CLI) | payer OTHER, SELFPAY | PROVIDERS: PCP Nurse Practitioner Family; Visit Provider Nurse Practitioner Family | DX: J02.9 Acute pharyngitis, unspecified (principal) | CPT/HCPCS: 87070 ==